=== PATIENT | male | born 1975 | race African-American/Black ===

== ENCOUNTER 2023-07-27 17:38 | Emergency (ER) | payer OTHER ==
[~2023-07-27] VITALS: Ht 193 cm; Wt 90.3 kg
[2023-07-27 19:01] LABS: CALCIUM 9.1 mg/dL (8.5-10.1); CARBON DIOXIDE 31 mmol/L (21-32); CHLORIDE 99 mmol/L (98-107); CREATININE 1.6 mg/dL (0.6-1.3); GLUCOSE 108 mg/dL (74-106); POTASSIUM 4.3 mmol/L (3.5-5.1); SODIUM SERUM 137 mmol/L (136-145); UREA NITROGEN, BLOOD 17 mg/dL (7-18)
[2023-07-27 19:09] LABS: BASOPHILS # (AUTO) 0.1 K/UL (0.0-0.2); EOSINOPHILS # (AUTO) 0.1 K/uL (0.0-0.7); EOSINOPHILS % (AUTO) 0.9 % (0.0-7.0); HEMATOCRIT 47.7 % (36.7-47.1); HEMOGLOBIN 16.5 g/dL (12.5-16.3); LYMPHOCYTES # (AUTO) 1.6 K/uL (0.8-4.8); LYMPHOCYTES % (AUTO) 19.6 % (20.5-51.5); MEAN CORPUSCULAR HGB CONC 35 g/dL (32.5-36.3); MEAN CORPUSCULAR VOLUME 92.2 fL (73.0-96.2); MONOCYTES # (AUTO) 0.7 K/uL (0.1-1.30); MONOCYTES % (AUTO) 9.2 % (0.0-11.0); NEUTROPHILS # (AUTO) 5.6 K/uL (1.8-8.9); NEUTROPHILS % (AUTO) 69.3 % (38.5-71.5); PLATELET COUNT (AUTO) 254 K/uL (152-348); RED BLOOD CELL COUNT(AUTO) 5.17 MIL/uL (4.06-5.63); RED CELL DISTRIBUTION WIDTH 13.2 % (12.1-16.2)
[2023-07-27 19:10] LABS: DIFFERENTIAL COMMENT 1
[2023-07-27 19:15] LABS: ALANINE AMINOTRANSFERASE 28 U/L (16-63); ALBUMIN 4.4 g/dL (3.4-5.0); ALKALINE PHOSPHATASE 81 U/L (50-136); ASPARTATE AMINOTRANSFERASE 13 U/L (15-37); BILIRUBIN,DIRECT 0.3 mg/dL (0.0-0.2); BILIRUBIN,TOTAL 2.6 mg/dL (0.2-1.0); NT-PRO BNP 15 pg/mL (0-125); TOTAL PROTEIN, SERUM 7.7 g/dL (6.4-8.2)
[2023-07-27 19:23] VITALS: BP 122/80; O2SAT 99
== END 2023-07-27 19:23 | disposition home or self-care (01) ==
LOC: ER 17:41
DX: R07.89 Other chest pain (principal)
CPT/HCPCS: 36415; 71045; 84484; 85025; 93005; A4606; A4663

== ENCOUNTER 2025-02-13 08:24 | Emergency (ER) | payer MEDICAID, OTHER ==
[~2025-02-13] VITALS: Ht 193 cm; Wt 91.2 kg
[2025-02-13 08:42] VITALS: BP 137/99
[2025-02-13] MEDS ORDERED: PROM118S5 PO (10:03)
[2025-02-13] MEDS ORDERED: AZIT500T4 PO (10:03)
[2025-02-13] MEDS ORDERED: PRED50TA PO (10:03)
[2025-02-13 10:16] VITALS: BP 137/99; TEMP 98.4; O2SAT 98
== END 2025-02-13 10:17 | disposition home or self-care (01) ==
LOC: ER 08:44
DX: J18.9 Pneumonia, unspecified organism (principal); Z79.52 Long term (current) use of systemic steroids
CPT/HCPCS: A4606